=== PATIENT | male | born 1995 | race Caucasian/White ===

== ENCOUNTER 2017-04-18 17:29 | Emergency (ER) | payer BC ==
--- NOTE | 2017-04-18 17:58 | EDM.PDOC ---
ED HPI GENERAL MEDICAL PROBLEM - General Chief Complaint: General Stated Complaint: PT HAS RASH ON BOTH ARMS Time Seen by Provider: 04/18/17 17:35 - History of Present Illness INITIAL COMMENTS - FREE TEXT/NARRATIVE: HISTORY AND PHYSICAL: History of present illness: The patient is a healthy 21-year-old male who presents with complaints of some nausea for 2 days but no vomiting or diarrhea, a subjective fever intermittently but not persistent and not requiring medications and a localized rash to bilateral upper shoulders that does not involve the rest of the body. The patient says that he presented because he was worried about [place] because his friends were doing some searching on the Internet and they thought the rash looked like [place]. He is eating and drinking normally has no chest pain cough shortness of breath sore throat ear pain sinus congestion and has no swollen glands neck pain or back pain. He's been eating and drinking normally but says he does drink a lot of caffeinated products. The rash on her shoulders is not itchy and it is not painful. The patient says that he has had no trauma to his upper shoulders but noticed this rash like area on both shoulders in the exact same location and no place else on his body. The rash is not itchy and he is not sure what it is which is what worries him. He has checked his entire body for other areas were rash or lesion and there are none Review of systems: As per history of present illness and below otherwise all systems reviewed and negative. Past medical history: As per history of present illness and as reviewed below otherwise noncontributory. Surgical history: As per history of present illness and as reviewed below otherwise noncontributory. Social history: No reported history of drug or alcohol abuse. Family history: As per history of present illness and as reviewed below otherwise noncontributory. Physical exam: Gen.: Well-developed well-nourished male who is nontoxic and vital signs are noted by me. He is interactive in the room and not clinically ill HEENT: Atraumatic, normocephalic, pupils reactive, negative for conjunctival pallor or scleral icterus, mucous membranes moist, throat clear, neck supple, nontender, trachea midline. There is no cervical adenopathy or nuchal rigidity Lungs: Clear to auscultation, breath sounds equal bilaterally, chest nontender. Heart: S1S2, regular rate and rhythm no overt murmurs Abdomen: Soft, nondistended, nontender. NABS Pelvis: Deferred Genitourinary: Deferred. Rectal: Deferred. Extremities: Atraumatic, full range of motion without defects or deficits. Neurovascular unremarkable. Neuro: Awake, alert, oriented. Cranial nerves II through XII unremarkable. Cerebellum unremarkable. Motor and sensory unremarkable throughout. Exam nonfocal. Skin: Normal turgor no evidence of any lesions and there are no rashes on the entire body with the exception of the tops of bilateral shoulders where there are several areas of some discoloration that looks like bruising but they're very small in character and they are not petechial. These areas are symmetrical in the exact same location on bilateral shoulders Diagnostics: [] Therapeutics: [] I discussed with the patient that in light of no documented fevers no use of medication for fevers no vomiting and no other serious systemic complaints he would not merit [place] testing and other blood work. I told him that we would not do isolated [place] testing without doing other laboratory evaluation if we were to evaluate him for possible bacterial or viral infection and his symptoms would have to be more consistent in order to do that testing. His rash does not look like a [place] rash and I encouraged him to follow any symptoms and return here as needed. I also encouraged him to hydrate. As I was discussing with him his symptomatology of [place] Saying that he was happy that someone was explaining things to him and that he doesn't feel sick and that he is ready to go. Impression: Worried well Definitive disposition and diagnosis as appropriate pending reevaluation and review of above. - Related Data Allergies Allergy/AdvReac Type Severity Reaction Status Date / Time No Known Allergies Allergy Verified 04/18/17 17:44 Home Meds: Home Meds . [No Known Home Meds] 08/15/16 [History] Past Medical History - Past Health History Medical/Surgical History: Denies Medical/Surgical History Psychiatric History: Reports: Anxiety - Infectious Disease History Infectious Disease History: Reports: None Social & Family History - Family History Family Medical History: Noncontributory - Tobacco Use Smoking Status *Q: Never Smoker Second Hand Smoke Exposure: No - Caffeine Use Caffeine Use: Reports: Soda - Recreational Drug Use Recreational Drug Use: No ED ROS GENERAL - Review of Systems Review Of Systems: ROS reveals no pertinent complaints other than HPI. ED EXAM, GENERAL - Physical Exam Exam: See Below (See dictation) Course - Vital Signs Last Recorded V/S: Last Vital Signs Temp 36.9 C 04/18/17 17:41 Pulse 85 04/18/17 17:41 Resp 20 04/18/17 17:41 BP 134/79 04/18/17 17:41 Pulse Ox 98 04/18/17 17:41 Departure - Departure Time of Disposition: 17:59 Disposition: Home, Self-Care 01 Condition: Good Clinical Impression: Worried well - Discharge Information Forms: ED Department Discharge Additional Instructions: The following information is given to patients seen in the emergency department who are being discharged to home. This information is to outline your options for follow-up care. We provide all patients seen in our emergency department with a follow-up referral. The need for follow-up, as well as the timing and circumstances, are variable depending upon the specifics of your emergency department visit. If you don't have a primary care physician on staff, we will provide you with a referral. We always advise you to contact your personal physician following an emergency department visit to inform them of the circumstance of the visit and for follow-up with them and/or the need for any referrals to a consulting specialist. The emergency department will also refer you to a specialist when appropriate. This referral assures that you have the opportunity for followup care with a specialist. All of these measure are taken in an effort to provide you with optimal care, which includes your followup. Under all circumstances we always encourage you to contact your private physician who remains a resource for coordinating your care. When calling for followup care, please make the office aware that this follow-up is from your recent emergency room visit. If for any reason you are refused follow-up, please contact the [facility] emergency department at and ask to speak to the emergency department charge nurse. [facility] Primary care- Internal Medicine and Family [address] [address] Push hydration and please call and follow-up in our clinic if new symptoms develop or as needed for further evaluation. Return to ER as needed and as discussed
[2017-04-18 18:50] VITALS: BP 132/79
== END 2017-04-18 18:09 | disposition home or self-care (01) ==
LOC: MW.ED 17:29
DX: Z71.1 Person with feared health complaint in whom no diagnosis is made (principal)
CPT/HCPCS: 99282

== ENCOUNTER 2019-07-12 12:07 | Emergency (ER) | payer SELFPAY ==
--- NOTE | 2019-07-12 12:28 | EDM.PDOC ---
ED HPI GENERAL MEDICAL PROBLEM - General Chief Complaint: Skin Complaint Stated Complaint: STEPPED ON [place] NAIL - LFT FOOT Time Seen by Provider: 07/12/19 12:18 - History of Present Illness INITIAL COMMENTS - FREE TEXT/NARRATIVE: HISTORY AND PHYSICAL: History of present illness: Patient 24-year-old white male presents status post puncture wound in which a nail penetrated his boot injuring his left foot. He is not up-to-date on his tetanus which is primary concern Review of systems: As per history of present illness and below otherwise all systems reviewed and negative. Past medical history: As per history of present illness and as reviewed below otherwise noncontributory. Surgical history: As per history of present illness and as reviewed below otherwise noncontributory. Social history: No reported history of drug or alcohol abuse. Family history: As per history of present illness and as reviewed below otherwise noncontributory. Physical exam: HEENT: Atraumatic, normocephalic, pupils reactive, negative for conjunctival pallor or scleral icterus, mucous membranes moist, throat clear, neck supple, nontender, trachea midline. Lungs: Clear to auscultation, breath sounds equal bilaterally, chest nontender. Heart: S1S2, regular, negative for clicks, rubs, or JVD. Abdomen: Soft, nondistended, nontender. Negative for masses or hepatosplenomegaly. Negative for costovertebral tenderness. Pelvis: Stable nontender. Genitourinary: Deferred. Rectal: Deferred. Extremities: Patient has a small puncture with no evidence of foreign body to the plantar aspect of his left foot is no active bleeding CMS neurovascular exams unremarkable. Neuro: Awake, alert, oriented. Cranial nerves II through XII unremarkable. Cerebellum unremarkable. Motor and sensory unremarkable throughout. Exam nonfocal. Diagnostics: Deferred Therapeutics: Wound was cleansed and dressed with bacitracin tetanus updated Impression: #1 puncture wound left foot Definitive disposition and diagnosis as appropriate pending reevaluation and review of above. left foot Pain Score (Numeric/FACES): 3 - Related Data Allergies Allergy/AdvReac Type Severity Reaction Status Date / Time No Known Allergies Allergy Verified 07/12/19 12:17 Home Meds: Home Meds . [No Known Home Meds] 08/15/16 [History] Past Medical History - Past Health History Medical/Surgical History: Denies Medical/Surgical History Psychiatric History: Reports: Anxiety - Infectious Disease History Infectious Disease History: Reports: None Social & Family History - Family History Family Medical History: Noncontributory - Tobacco Use Smoking Status *Q: Never Smoker - Caffeine Use Caffeine Use: Reports: Soda - Recreational Drug Use Recreational Drug Use: No ED ROS GENERAL - Review of Systems Review Of Systems: ROS reveals no pertinent complaints other than HPI. ED EXAM, SKIN/RASH Exam: See Below (See dictation) Course - Vital Signs Last Recorded V/S: Last Vital Signs Temp 36.5 C 07/12/19 12:16 Pulse 105 H 07/12/19 12:16 Resp 18 07/12/19 12:16 BP 137/85 07/12/19 12:16 Pulse Ox 99 07/12/19 12:16 Departure - Departure Time of Disposition: 12:29 Disposition: Home, Self-Care 01 Condition: Good Clinical Impression: Puncture wound - Discharge Information Referrals: PCP,None [Primary Care Provider] - Additional Instructions: The following information is given to patients seen in the emergency department who are being discharged to home. This information is to outline your options for follow-up care. We provide all patients seen in our emergency department with a follow-up referral. The need for follow-up, as well as the timing and circumstances, are variable depending upon the specifics of your emergency department visit. If you don't have a primary care physician on staff, we will provide you with a referral. We always advise you to contact your personal physician following an emergency department visit to inform them of the circumstance of the visit and for follow-up with them and/or the need for any referrals to a consulting specialist. The emergency department will also refer you to a specialist when appropriate. This referral assures that you have the opportunity for followup care with a specialist. All of these measure are taken in an effort to provide you with optimal care, which includes your followup. Under all circumstances we always encourage you to contact your private physician who remains a resource for coordinating your care. When calling for followup care, please make the office aware that this follow-up is from your recent emergency room visit. If for any reason you are refused follow-up, please contact the [facility] emergency department at and asked to speak to the emergency department charge nurse. [facility] Specialty Care - General Surgery Professional Building [address] [place] [address], [address] [place] [address] Follow-up primary medical doctor in our Gen. surgery above wound check Cipro as prescribed and return as needed as discussed
[2019-07-12] MEDS ORDERED: Diphtheria,Pertussis(Acell),Tetanus Vaccine 0.5 ML Syringe IM ONE (12:29)
[2019-07-12 13:00] VITALS: BP 136/94; PULSE 88
== END 2019-07-12 12:45 | disposition home or self-care (01) ==
LOC: MW.ED 12:07
DX: S91.332A Puncture wound without foreign body, left foot, initial encounter (principal); Z23 Encounter for immunization; W45.0XXA Nail entering through skin, initial encounter
CPT/HCPCS: 90471; 90715; 99282

== ENCOUNTER 2020-08-31 18:17 | Emergency (ER) | payer SELFPAY ==
[2020-08-31] MEDS ORDERED: Bacitracin Oint 1 GM U/D Packet TOP ONE (18:50)
--- NOTE | 2020-08-31 18:50 | EDM.PDOC ---
ED HPI GENERAL MEDICAL PROBLEM - General Chief Complaint: Laceration Stated Complaint: LT HAND CUT Time Seen by Provider: 08/31/20 18:21 Source of Information: Reports: Patient History Limitations: Reports: No Limitations - History of Present Illness INITIAL COMMENTS - FREE TEXT/NARRATIVE: Is reporting radiation to his left hand. The patient states that he was using a knife to fix something on a vehicle, the knife slipped and he lacerated his hand. He had a tetanus vaccine within the year due to a previous injury. He is otherwise healthy without chronic medical problems. L hand Pain Score (Numeric/FACES): 1 - Related Data Allergies Allergy/AdvReac Type Severity Reaction Status Date / Time No Known Allergies Allergy Verified 08/31/20 18:21 Home Meds: Home Meds . [No Known Home Meds] 08/15/16 [History] Past Medical History - Past Health History Medical/Surgical History: Denies Medical/Surgical History Psychiatric History: Reports: Anxiety - Infectious Disease History Infectious Disease History: Reports: None Social & Family History - Family History Family Medical History: No Pertinent Family History - Caffeine Use Caffeine Use: Reports: Energy Drinks - Recreational Drug Use Recreational Drug Use: No ED ROS GENERAL - Review of Systems Review Of Systems: Comprehensive ROS is negative, except as noted in HPI. ED EXAM, SKIN/RASH Exam: See Below Exam Limited By: No Limitations General Appearance: Alert, No Apparent Distress Ears: Normal External Exam Nose: Normal Inspection Throat/Mouth: Normal Inspection Head: Atraumatic, Normocephalic Neck: Normal Inspection Respiratory/Chest: No Respiratory Distress, Lungs Clear, Normal Breath Sounds Cardiovascular: Normal Peripheral Pulses, Regular Rate, Rhythm Back Exam: Normal Inspection Extremities: Other (Left hand lateral to the second metacarpal angular 4 centimeter laceration. Full range of motion to all digits left hand without hesitation or limitation full strength to left first and second digits. CMS intact distally to first and second digits.) Neurological: Alert, Oriented Psychiatric: Normal Affect, Normal Mood Skin: Warm, Dry, Intact, Normal Color, No Rash ED SKIN PROCEDURES - Laceration/Wound Repair Left Hand Appearance: Superficial Distal NVT: Neuro & Vascular Intact Anesthetic Type: Local Local Anesthesia - Lidocaine (Xylocaine): 1% Plain Local Anesthetic Volume: 5cc Skin Prep: Chlorhexidine (Hibiciens) Exploration/Debridement/Repair: Wound Explored, Explored to Base Closed with: Sutures Lac/Wound length In cm: 4 Suture Size: 4-0 # of Sutures: 6 Suture Type: Interrupted Course - Vital Signs Last Recorded V/S: Last Vital Signs Temp 36.7 C 08/31/20 18:22 Pulse 102 H 08/31/20 18:22 Resp 18 08/31/20 18:22 BP 148/83 H 08/31/20 18:22 Pulse Ox 94 L 08/31/20 18:22 - Orders/Labs/Meds Meds: Medications Discontinued Medications Generic Name Dose Route Start Last Admin Trade Name Song PRN Reason Stop Dose Admin Lidocaine HCl 5 ml 08/31/20 18:24 08/31/20 18:30 Xylocaine-Mpf 1% INJECT 08/31/20 18:25 5 ml ONETIME ONE Administration Departure - Departure Time of Disposition: 18:50 Disposition: Home, Self-Care 01 Condition: Good Clinical Impression: Laceration - Discharge Information *PRESCRIPTION DRUG MONITORING PROGRAM REVIEWED*: Not Applicable *COPY OF PRESCRIPTION DRUG MONITORING REPORT IN PATIENT GIGI: Not Applicable Referrals: PCP,None [Primary Care Provider] - Additional Instructions: The following information is given to patients seen in the emergency department who are being discharged to home. This information is to outline your options for follow-up care. We provide all patients seen in our emergency department with a follow-up referral. The need for follow-up, as well as the timing and circumstances, are variable depending upon the specifics of your emergency department visit. If you don't have a primary care physician on staff, we will provide you with a referral. We always advise you to contact your personal physician following an emergency department visit to inform them of the circumstance of the visit and for follow-up with them and/or the need for any referrals to a consulting specialist. The emergency department will also refer you to a specialist when appropriate. This referral assures that you have the opportunity for follow-up care with a specialist. All of these measure are taken in an effort to provide you with optimal care, which includes your follow-up. Under all circumstances we always encourage you to contact your private physician who remains a resource for coordinating your care. When calling for follow-up care, please make the office aware that this follow-up is from your recent emergency room visit. If for any reason you are refused follow-up, please contact the [facility] Emergency Department at and asked to speak to the emergency department charge nurse. 1. Suture removal 10 days urgent care, return to ER, clinic 2. For signs of infection: Redness, swelling, purulent drainage report promptly 3. Keep covered while working Sepsis Event Note (ED) - Evaluation Sepsis Screening Result: No Definite Risk - Focused Exam Vital Signs: Vital Signs Temp Pulse Resp BP Pulse Ox 08/31/20 18:22 36.7 C 102 H 18 148/83 H 94 L
[2020-08-31 19:13] VITALS: BP 156/92; PULSE 88
== END 2020-08-31 19:04 | disposition home or self-care (01) ==
LOC: MW.ED 18:17
DX: S61.412A Laceration without foreign body of left hand, initial encounter (principal); W26.0XXA Contact with knife, initial encounter
CPT/HCPCS: 12002; 99282; J2001

== ENCOUNTER 2021-11-12 12:18 | Emergency (ER) | payer OTHER ==
[2021-11-12 14:08] VITALS: BP 112/61; PULSE 87
== END 2021-11-12 14:10 | disposition home or self-care (01) ==
LOC: MW.ED 12:18
DX: S93.401A Sprain of unspecified ligament of right ankle, initial encounter (principal); Y30.XXXA Falling, jumping or pushed from a high place, undetermined intent, initial encounter; Y93.33 Activity, BASE jumping; Y92.830 Public park as the place of occurrence of the external cause
CPT/HCPCS: 73610-26-RT; 73610-RT; 99283-25